=== PATIENT | female | born 1960 | race Caucasian/White ===

== ENCOUNTER → 2021-10-05 12:45 | Outpatient (CLI) | payer SELFPAY ==
--- NOTE | ~2021-10-05 | MM_ITS ---
EXAMINATION: MM screening tahir BI w korey HISTORY: Screening TECHNIQUE: Craniocaudal and mediolateral oblique 3-D tomosynthesis images were obtained and synthetic 2-D images were generated. CAD analysis was submitted and interpreted. COMPARISON: No prior mammogram is available for comparison at this institution. BREAST PARENCHYMAL COMPOSITION: There are scattered areas of fibroglandular density. FINDINGS: There is focal asymmetry with possible architectural distortion in the upper outer quadrant of the right breast anteriorly. There is no mammographic evidence for malignancy in the right breast . IMPRESSION: 1. Focal asymmetry/architectural distortion upper outer quadrant of the left breast. 2. Additional mammographic views and possible breast ultrasound are recommended. BI-RADS Category 0: Incomplete: Needs additional imaging evaluation. Reviewed, dictated and finalized at location A. IMPRESSION: 1. Focal asymmetry/architectural distortion upper outer quadrant of the left br east. 2. Additional mammographic views and possible breast ultrasound are recommended . BI-RADS Category 0: Incomplete: Needs additional imaging evaluation.
== END ==
DX: Z12.31 Encounter for screening mammogram for malignant neoplasm of breast (principal)
CPT/HCPCS: 77063; 77067

== ENCOUNTER → 2021-10-18 09:49 | Outpatient (CLI) | payer SELFPAY ==
--- NOTE | ~2021-10-18 | MMUS_ITS ---
EXAMINATION: MM diagnostic tahir LT w korey, US breast LT limited HISTORY: Follow-up left breast asymmetry TECHNIQUE: Additional 3-D tomosynthesis images of the left breast were performed and synthetic 2-D im ages were generated. CAD analysis was submitted and interpreted. High resolution Limited left breast ultrasound was performed. COMPARISON: 10/05/2021 BREAST PARENCHYMAL COMPOSITION: Breast composed of scattered areas of fibroglandular density FINDINGS: MAMMOGRAPHIC FINDINGS: Focal asymmetry laterally in the left breast on CC view is less dense with spot compression views. No discrete mass, focal area of architectural distortion or suspicious cluster of calcifications is efrain ntified. ULTRASOUND: Limited left breast ultrasound: At 1:00, 10 cm from the nipple, there is a small intramammary lymph n ode measuring 4 mm corresponding to lymph nodes seen on mammography. No suspicious masses to suggest malignancy. IMPRESSION: 1. No evidence for malignancy in the left breast. Benign findings. 2. Routine yearly screening mammogram and regular clinical breast examination are recommended. BI-RADS Category 2: Benign finding(s). Reviewed, dictated and finalized at location A. IMPRESSION: 1. No evidence for malignancy in the left breast. Benign findings. 2. Routine yearly screening mammogram and regular clinical breast examination a re recommended. BI-RADS Category 2: Benign finding(s).
== END ==
DX: R92.8 Other abnormal and inconclusive findings on diagnostic imaging of breast (principal)
CPT/HCPCS: 76642; 77061; 77065; G0279